=== PATIENT | male | born 1970 | race African-American/Black ===

== ENCOUNTER 2022-08-30 22:35 | Emergency (ER) | payer MEDICARE, MEDICAID, SELFPAY ==
[2022-08-30 22:45] VITALS: BP 150/105; PULSE 83; RESP 17; TEMP 36.5; O2SAT 97; BMI 28.6
--- NOTE | 2022-08-30 23:12 | PC.NURSE ---
patient c/o dental pain also reports penile discharge and some burning. patient to bathroom at this time to provide urine sample. awaiting initial provider eval.
[2022-08-30 23:17] VITALS: BP 148/98; PULSE 78; RESP 16
[2022-08-30 23:26] LABS: Appearance Urine Clear; Color Urine Yellow; Glucose Urine UA Negative (Negative); Leukocyte Esterase Urine Negative (Negative); Nitrite Urine Negative (Negative); PH 5.5 (5.0-9.0); Specific Gravity - Urine >= 1.030 (1.005-1.025); Urine Blood Negative (Negative); Urine Ketones Trace mg/dL (Negative); Urine Protein Negative (Neg-Trace)
[2022-08-30 23:31] LABS: Bacteria Urine None Seen (None Seen); Hyaline Casts Urine 0-2 /LPF (0-2); RBC Urine 0-2 /HPF (0-2); Squamous Epithelial Cell Urine 0-2 /HPF (0-2); WBC Urine 0-5 /HPF (0-5)
--- NOTE | 2022-08-30 23:48 | ED_ITS ---
HPI - Dental/Oral General Chief complaint: Dental/Oral Stated complaint: Infection in mouth Time Seen by Provider: 08/30/22 23:24 Source: patient Mode of arrival: ambulatory Limitations: no limitations History of Present Illness HPI Narrative: Patient with dental caries complaining of toothache for long time unable to see a dentist also complaining of possible STI denies any exposure but says with discharge from the penis for last few days denies any urine complaints no fever no chills no abdominal pain Related Data Previous Rx's Medication Instructions Recorded ibuprofen 600 mg tablet 600 mg PO Q6H PRN fever or pain 08/30/22 #30 tabs doxycycline hyclate 100 mg tablet 100 mg PO BID #20 tabs 08/31/22 Allergies Allergy/AdvReac Type Severity Reaction Status Date / Time No Known Allergies Allergy Verified 08/30/22 22:45 [No Known Allergies*] Review of Systems Review of Systems: Yes all other systems are reviewed and are negative PMFSH Social History Social History Advance Directives: No Advance Directives Information Provided: No Physical Exam Vital Signs: Vital Signs: Last Vital Signs Temp 97.7 F 08/30/22 22:45 Pulse 78 08/30/22 23:17 Resp 16 08/30/22 23:17 BP 148/98 H 08/30/22 23:17 Pulse Ox 97 08/30/22 22:45 O2 Del Method Room Air 08/30/22 22:45 BMI result Body Mass Index 28.6 Appearance: Alert. Oriented X3. No acute distress. ENT: Pharynx normal. Oral Mucosa moist old broken Tote right lower premolar chronic gum swelling no bogginess no pus discharge Neck: Normal inspection. Neck supple. CVS: Normal heart rate and rhythm. Pulses normal. Respiratory: No respiratory distress. Equal air entry bilateral, Abdomen: Soft and nontender. Bowel sounds are present, no mass palpable, no CVA tenderness no penile discharge scrotum testicles normal Skin: Skin warm and dry. Medications Administered Discontinued Medications Generic Name Dose Route Start Last Admin Trade Name Freq PRN Reason Stop Dose Admin Amoxicillin/Clavulanate Potassium 875 mg 08/30/22 23:54 08/31/22 00:06 Amoxicillin/Potassium Clav 875 Mg Tablet PO 05/18/23 23:55 875 mg ONCE ONE Administration Ceftriaxone Sodium 500 mg/ 0 mg 08/31/22 00:14 08/31/22 00:24 Lidocaine HCl 1 ml IM 08/31/22 00:15 1 kit ONCE ONE Administration Doxycycline Monohydrate 100 mg 08/31/22 00:14 08/31/22 00:24 Doxycycline Monohydrate 100 Mg Capsule PO 08/31/22 00:15 100 mg ONCE ONE Administration Ibuprofen 600 mg 08/30/22 23:54 08/31/22 00:06 Ibuprofen 600 Mg Tablet PO 08/30/22 23:55 600 mg ONCE ONE Administration Medical Decision Making Medical Decision Making MDM Narrative: Patient treated for possible STI exposure was given Rocephin and doxycycline advised to follow dental and PCP Lab Data MDM Lab Attestation statement: I reviewed the patient's lab results. Labs: Lab Results 08/30/22 08/30/22 Range/Units 23:17 23:17 Urine Color Yellow Urine Appearance Clear Urine pH 5.5 (5.0-9.0) Ur Specific [place] >= 1.030 H (1.005-1.025) Urine Protein Negative (Neg-Trace) mg/dL Urine Glucose (UA) Negative (Negative) mg/dL Urine Ketones Trace (Negative) mg/dL Urine Blood Negative (Negative) Urine Nitrite Negative (Negative) Ur Leukocyte Esterase Negative (Negative) Urine RBC 0-2 (0-2) /HPF Urine WBC 0-5 (0-5) /HPF Ur Squamous Epith Cells 0-2 (0-2) /HPF Urine Bacteria None Seen (None Seen) Hyaline Casts 0-2 (0-2) /LPF Chlam trachomat DNA PCR NOT DETECTED (Not Detect.) N.gonorrhoeae DNA (PCR) DETECTED A (Not Detect.) Discharge Plan Discharge Clinical Impression: Dental caries, Encounter for assessment of STD exposure Patient Disposition: Home, Self-Care Instructions: Sexually Transmitted Diseases (ED), Toothache (ED) Additional Instructions: Take pain medication antibiotic as prescribed Follow-up with your dentist Prescriptions: New ibuprofen 600 mg tablet 600 mg PO Q6H PRN (Reason: fever or pain) Qty: 30 0RF doxycycline hyclate 100 mg tablet 100 mg PO BID Qty: 20 0RF Interventions: ED Discharge Assessment Last Done: 08/31/22 00:29 Discharge Date/Time: 08/31/22 00:30
[2022-08-31] MEDS: Ibuprofen 600 MG TABLET PO (00:06)
[2022-08-31] MEDS: Amoxicillin/Potassium Clav 875 MG TABLET PO (00:06)
[2022-08-31] MEDS: Doxycycline Monohydrate 100 MG CAPSULE PO (00:24)
[2022-08-31] MEDS: cefTRIAXone sodium 500 MG, Lidocaine HCl 1 % MPF 1 ML IM (00:24)
[2022-08-31 00:55] LABS: CT PCR NOT DETECTED (Not Detect.); NG PCR DETECTED (Not Detect.)
== END 2022-08-31 00:30 | disposition home or self-care (01) ==
PROVIDERS: Emergency Provider Internal Medicine
DX: K02.9 Dental caries, unspecified (principal); K08.89 Other specified disorders of teeth and supporting structures; Z20.2 Contact with and (suspected) exposure to infections with a predominantly sexual mode of transmission; R36.9 Urethral discharge, unspecified
CPT/HCPCS: 0353U; 81001; 96372; 99283; 99284; J0696

== ENCOUNTER 2023-04-22 21:21 | Emergency (ER) | payer MEDICARE, MEDICAID, SELFPAY | END 2023-04-22 23:27 | disposition left against medical advice (07) | PROVIDERS: Emergency Provider Emergency Medicine | DX: K08.89 Other specified disorders of teeth and supporting structures (principal) ==

== ENCOUNTER 2023-06-24 16:16 | Emergency (ER) | payer MEDICARE, MEDICAID, SELFPAY ==
--- NOTE | ~2023-06-24 | XR_ITS ---
EXAMINATION: XR CHEST CLINICAL INFORMATION: Chest pain. COMPARISON: None available. TECHNIQUE: Frontal view of the chest was obtained. FINDINGS: The trachea is in normal anatomic position. Heart size is normal. Both lungs are clear. The pleural spaces are clear. No pneumothorax. No acute osseous abnormality. XR/XR chest 1V IMPRESSION: No acute cardiopulmonary disease.
--- NOTE | 2023-06-24 16:18 | ECG_ITS ---
Test Reason : chest pain Blood Pressure : / mmHG Vent. Rate : 070 BPM Atrial Rate : 070 BPM P-R Int : 180 ms QRS Dur : 116 ms QT Int : 390 ms P-R-T Axes : 058 003 016 degrees QTc Int : 421 ms Normal sinus rhythm Left ventricular hypertrophy with QRS widening ( R in aVL , Broad Top product ) Abnormal ECG When compared with ECG of 20-OCT-2016 00:10, Non-specific change in ST segment in Lateral leads Referred By: Derek Lea Electronically Signed By:LAWRENCE STODDARD MD
[2023-06-24 16:30] VITALS: BP 124/70; PULSE 80; RESP 16; O2SAT 98; BMI 26.6
--- NOTE | 2023-06-24 16:37 | ED.GENADULT ---
HPI - General Adult General Chief complaint: Chest Pain Stated complaint: chest pain History of Present Illness HPI narrative: Left without being seen Related Data Previous Rx's Medication Instructions Recorded ibuprofen 600 mg tablet 600 mg PO Q6H PRN fever or pain 08/30/22 #30 tabs doxycycline hyclate 100 mg tablet 100 mg PO BID #20 tabs 08/31/22 Allergies Allergy/AdvReac Type Severity Reaction Status Date / Time No Known Allergies Allergy Verified 08/30/22 22:45 [No Known Allergies*] [facility] Social History Social History Advance Directives: No Advance Directives Information Provided: No Physical Exam ED Vital Signs: Vital Signs - 24 hr 06/24/23 16:30 Pulse Rate 80 Respiratory Rate 16 Blood Pressure 124/70 Pulse Oximetry 98 Oxygen Delivery Method Room Air BMI result Body Mass Index 26.6 Course Course Course Narrative: RME: 53-year-old male presents to ED for recurrent chest pain. Patient was seen at [facility] for similar symptoms and given GI cocktail that improved but then symptoms returned. Patient did not like treatment at [facility] so he came to the ED to be re-evaluated. Patient not in distress. EKG labs ordered. Medical Decision Making Lab Data 06/24/23 18:46 06/24/23 18:46 Labs: Lab Results 06/24/23 Range/Units 18:46 WBC 4.5 L (4.8-10.8) X10*3/uL RBC 4.50 L (4.60-5.80) X10*6/uL Hgb 14.1 (14.0-18.0) g/dl Hct 38.9 L (42.0-52.0) % MCV 86.4 (80.0-98.0) fL MCH 31.3 (27.0-33.0) pg MCHC 36.2 H (31.0-36.0) g/dl RDW 13.3 (11.0-16.0) % Plt Count 185 (160-400) X10*3/uL MPV 11.5 (9.4-12.4) fL Immature Gran % (Auto) 0.2 (0.0-0.4) % Neut % (Auto) 47.7 (45-73) % Lymph % (Auto) 42.3 H (20-40) % [place] % (Auto) 6.2 (2-11) % Eos % (Auto) 2.7 (0-4) % Baso % (Auto) 0.9 (0-2) % Lymph # (Auto) 1.9 (1.2-4.9) X10*3/uL [place] # (Auto) 0.3 (0.1-1.2) X10*3/uL Eos # (Auto) 0.1 (0.0-0.4) X10*3/uL Baso # (Auto) 0.0 (0.0-0.2) X10*3/uL Abs Immat Gran (auto) 0.01 (0.00-0.03) X10*3/uL Absolute Neuts (auto) 2.1 (2.0-8.3) x10*3/uL Absolute Nucleated RBC 0.000 (0.0-0.012) X10*3/uL Nucleated RBC % (auto) 0.0 (0.0-0.2) /100WBC PT 11.1 (11.1-13.3) SEC INR 0.9 (0.9-1.1) APTT 33.9 (26.0-36.8) SEC Sodium 140 (135-145) mmol/L Potassium 3.5 (3.3-5.1) mmol/L Chloride 109 H (96-108) mmol/L Carbon Dioxide 23 (22-29) mmol/L Anion Gap 12 (12-20) BUN 17 H (9-16) mg/dL Creatinine 1.12 (0.5-1.4) mg/dL Estim Creat Clear Calc 68.0 Estimated GFR > 60 Random Glucose 146 H (60-115) mg/dL Calcium 9.5 (8.4-10.2) mg/dL Total Bilirubin 1.0 (0.0-1.0) mg/dL AST 18 (5-37) U/L ALT 19 (0-40) U/L Alkaline Phosphatase 75 (39-117) U/L Troponin I High Sens < 2.7 (<3.5-35.0) ng/L B-Natriuretic Peptide < 10 (<100) pg/mL Total Protein 7.6 (6.5-8.0) g/dL Albumin 4.2 (3.5-5.0) g/dL Lipase 23 (8-78) U/L Discharge Plan Discharge Clinical Impression: Chest pain Patient Disposition: Left W/O Completing Treatment Prescriptions: No Action ibuprofen 600 mg tablet 600 mg PO Q6H PRN (Reason: fever or pain) Qty: 30 0RF doxycycline hyclate 100 mg tablet 100 mg PO BID Qty: 20 0RF Discharge Date/Time: 06/24/23 22:17
[2023-06-24 18:50] LABS: MANUAL DIFF FLAG NO
[2023-06-24 18:58] LABS: Basophils Percent Auto 0.9 % (0-2); Eosinophils Absolute Auto 0.1 X10*3/uL (0.0-0.4); Eosinophils Percent Auto 2.7 % (0-4); Hematocrit 38.9 % (42.0-52.0); Hemoglobin 14.1 g/dl (14.0-18.0); Imm Gran Abs Auto 0.01 X10*3/uL (0.00-0.03); Imm Gran Pct Auto 0.2 % (0.0-0.4); Lymphocytes Absolute Auto 1.9 X10*3/uL (1.2-4.9); Lymphocytes Percent Auto 42.3 % (20-40); Mean Corpuscular HGB Conc 36.2 g/dl (31.0-36.0); Mean Corpuscular Hemoglobin 31.3 pg (27.0-33.0); Mean Corpuscular Volume 86.4 fL (80.0-98.0); Mean Platelet Volume 11.5 fL (9.4-12.4); Monocytes Absolute Auto 0.3 X10*3/uL (0.1-1.2); Monocytes Percent Auto 6.2 % (2-11); Neutrophils Absolute Auto 2.1 x10*3/uL (2.0-8.3); Neutrophils Percent Auto 47.7 % (45-73); Platelet Count 185 X10*3/uL (160-400); Red Cell Distribution Width 13.3 % (11.0-16.0); White Blood Count 4.5 X10*3/uL (4.8-10.8)
[2023-06-24 19:06] LABS: Alanine Aminotransferase 19 U/L (0-40); Albumin Level 4.2 g/dL (3.5-5.0); Alkaline Phosphatase 75 U/L (39-117); Anion Gap 12 (12-20); Aspartate Amino Transferase 18 U/L (5-37); Blood Urea Nitrogen 17 mg/dL (9-16); Calcium 9.5 mg/dL (8.4-10.2); Carbon Dioxide 23 mmol/L (22-29); Chloride 109 mmol/L (96-108); Estimated Glomerular Filt Rate > 60; Glucose Random 146 mg/dL (60-115); Lipase 23 U/L (8-78); Potassium 3.5 mmol/L (3.3-5.1); Sodium 140 mmol/L (135-145); Total Protein 7.6 g/dL (6.5-8.0)
[2023-06-24 19:07] LABS: INTERNATIONAL NORM RATIO 0.9 (0.9-1.1); Prothrombin Time 11.1 SEC (11.1-13.3)
[2023-06-24 19:09] LABS: Partial Thromboplastin Time 33.9 SEC (26.0-36.8)
[2023-06-24 19:11] LABS: B Type Natriuretic Peptide < 10 pg/mL (<100)
[2023-06-24 19:14] LABS: Troponin-I High Sensitivity < 2.7 ng/L (<3.5-35.0)
== END 2023-06-24 22:17 | disposition left against medical advice (07) ==
PROVIDERS: Physician Assistant; Emergency Provider Emergency Medicine
DX: R07.9 Chest pain, unspecified (principal)
CPT/HCPCS: 36415; 71045; 80053; 83690; 83880; 84484; 85025; 85610; 85730; 93005; 99283

== ENCOUNTER → 2023-06-24 16:18 | Outpatient (BNV) | payer MEDICARE, MEDICAID, SELFPAY | PROVIDERS: Emergency Provider Emergency Medicine; Visit Provider Internal Medicine Cardiovascular Disease | DX: R07.9 Chest pain, unspecified (principal) | CPT/HCPCS: 93010 ==